=== PATIENT | female | born 1965 | race Caucasian/White ===

== ENCOUNTER → 2016-12-27 | Outpatient (CLI) | payer OTHER ==
[~2016-12-27] MED LIST: DILTIAZEM 24HR240 MG PO; ENALAPRIL MALEA10 MG PO; IBUPROFEN600 MG PO; NORCO 5-325 TA1 EACH PO
== END ==
LOC: EXRD 09:07
DX: M25.512 Pain in left shoulder (principal); M25.562 Pain in left knee; M19.012 Primary osteoarthritis, left shoulder
CPT/HCPCS: 73030; 73560

== ENCOUNTER → 2017-02-14 | Outpatient (CLI) | payer OTHER | LOC: EMI 16:30 | DX: M25.562 Pain in left knee (principal); M25.552 Pain in left hip; M25.512 Pain in left shoulder; V40.9XXA Unspecified car occupant injured in collision with pedestrian or animal in traffic accident, initial encounter | CPT/HCPCS: 73721 ==

== ENCOUNTER → 2017-04-18 | Outpatient (CLI) | payer OTHER ==
[2017-04-18 08:00] LABS: HEMOGLOBIN 12.5 gm/dl (12.3-15.3); RED BLOOD COUNT 4.27 M/UL (4.00-5.10); WHITE BLOOD COUNT 5.9 K/UL (4.5-11.0)
[2017-04-18 08:08] LABS: BUN/CREATININE RATIO 15 (0-10)
== END ==
LOC: OPSV2 07:19
PROVIDERS: Obstetrics & Gynecology
DX: Z01.810 Encounter for preprocedural cardiovascular examination (principal); Z01.812 Encounter for preprocedural laboratory examination; N92.0 Excessive and frequent menstruation with regular cycle
CPT/HCPCS: 36415; 80048; 81001; 85025; 93005

== ENCOUNTER 2022-04-17 08:49 | Emergency (ER) | payer OTHER ==
[2022-04-17 09:30] LABS: HEMOGLOBIN 14.1 gm/dl (12.3-15.3); RED BLOOD COUNT 4.62 M/UL (4.00-5.10); WHITE BLOOD COUNT 7.7 K/UL (4.5-11.0)
[2022-04-17 09:43] LABS: BUN/CREATININE RATIO 18 (0-10)
== END 2022-04-17 12:28 | disposition home or self-care (01) ==
LOC: ER1 08:49
PROVIDERS: Emergency Medicine
DX: R07.89 Other chest pain (principal); E78.00 Pure hypercholesterolemia, unspecified; I10 Essential (primary) hypertension
CPT/HCPCS: 71045; 80048; 84484; 85025; 93005; 99285